=== PATIENT | male | born 1990 | race Caucasian/White ===

== ENCOUNTER 2020-09-29 07:05 | Emergency (ER) | payer MEDICAID, SELFPAY ==
[2020-09-29] VITALS (31 sets, daily range): BP systolic 126–145; BP diastolic 71–94; PULSE 60–88; RESP 12–23; TEMP 36.6–36.7; O2SAT 97–100
--- NOTE | 2020-09-29 07:00 | RT.EKG_ITS ---
APPROVED REPORT Exam: Resting ECG Reason for Exam: possible stroke Patient Location: E HR:67 bpm ECG Measurements Heart Rate 67 AXIS WY 155 P 30 QRSd 82 QRS 60 QT 379 T 32 QTc 400 Conclusion Sinus rhythm...normal P axis, V-rate 60- 99 Physician: no significant st elevation or depression. No stemi
--- NOTE | 2020-09-29 07:27 | ED.GENADUL_ITS ---
Discharge Plan Disposition Patient Disposition: [facility] Condition: Critical Discharge Details Clinical Impression: Paralysis of right upper extremity, Paralysis of right lower extremity Primary Care Provider: None,None ED Provider: Esdras Burton Home Meds and New Rx's Prescriptions: No Action No Known Home Meds RF: 0 Discharge Data Discharge Date/Time-TO BE ENTERED AT DEPARTURE: 09/29/20 10:28 Medical Decision Making <Stew Retana DO - Last Filed: 09/30/20 01:29> 30-year-old male who denies any past medical history presents today for evaluation of stroke. Per EMS and the patient at 1900 last night the patient developed symptoms of notable right-sided weakness. He felt that it came on suddenly. He denies any numbness or tingling. He denies any headache, vision changes, chest pain, shortness of breath, chest heaviness, or ripping or tearing sensation in the chest. He denies any history of IV or illicit drug use, head trauma, nausea, vomiting or diarrhea. He denies any other complaints at this time. He never had an episode like this before. He denies any recent diarrhea, can food intake, IV or illicit drug use, family history of atypical neurologic disease. Physical exam demonstrates total paralysis of the right upper and right lower extremity, his tongue deviates to the right, however no significant facial asymmetry. Vision is intact. Interestingly the patient has total normal sensation for all extremities throughout. Good vascular exam, good pulses. +2 DTR at the patella bilaterally. Differential certainly includes stroke, however transverse myelitis or other acute atypical intracranial pathology is on the differential. He has no back pain, no neck pain or headache. Symptoms clinically inconsistent with dissection. Patient is out of the window for TPA since his last known well was early last evening. We will start with CT/CTA, monitor closely and reassess. Patient will be signed out to my colleague Dr. Esdras Burton for follow-up on labs, imaging, the final disposition. Please refer to his documentation. <Esdras Burton MD - Last Filed: 10/05/20 10:32> 8:00 --care signed out by Dr. Retana with plan to follow-up on CT imaging and labs. Please see Dr. Retana's note regarding initial ED presentation and course. Patient has received crystalloid bolus of 500 mL. 8:56 -- CT CTA of the brain and neck was interpreted by radiology who I spoke with and notes significant occlusive disease: Left-sided proximal internal carotid artery occlusion at the level of the bulb with reconstitution of the intracranial ICA at the transverse petrous portion, likely reflecting retrograde filling with the [place] of Sam collaterallization. Moderate proximal left common carotid artery stenosis just distal to the origin of the arch. High- grade focal right proximal internal carotid artery stenosis of 90%. High-grade proximal right external carotid artery stenosis of approximately 90%. Left- sided M2 MCA occlusion. Left-sided calloso marginal ZURI occlusion. I immediately called [facility] transfer center to request emergent transfer to neurology for consideration for thrombectomy. Awaiting callback from transfer center. CT images have been sent for review. --Patient is agitated, frustrated and quite anxious. He is agreeable to a small dose of anxiolytic. I will give Ativan 0.5 mg IV. 9:29 -- I spoke with Dr. Guanaco Butler - she reviewed the CT/CTA images and does not identify lesion that would be treatable with intravascular thrombectomy. I reviewed radiologist concern of MCA and ZURI occlusion. She is reviewing with internationalist and will call back. 9:40 --I spoke again with Dr. Guanaco Butler, she will accept the patient in transfer, [facility] air unit activated. She does recommend administering aspirin 325 mg. Lab Data Lab results reviewed: Yes I reviewed the patient's lab results. Labs: Laboratory Tests Range/Units 09/29/20 09/29/20 09/29/20 07:00 07:00 07:00 WBC (4.4-10.8) 10^3/uL 14.56 H RBC (4.36-5.78) 10^6/uL 4.92 Hgb (13.5-17.5) g/dL 14.6 Hct (40.0-50.0) % 43.5 MCV (80-95) fL 88.4 MCH (27.0-33.0) pg 29.7 MCHC (32.0-36.0) % 33.6 RDW (11.8-14.1) % 12.6 Plt Count (130-400) 10^3/uL 275 MPV (8.0-11.0) fL 9.9 Immature Gran % 1.0 Neutrophils % 73.6 Lymphocytes % 12.0 Monocytes % 9.7 Eosinophils % 3.2 Basophils % 0.5 Nucleated RBC % % 0 Absolute Neutrophils (1.2-6.7) 10^3/uL 10.72 H Absolute Lymphocytes (1.2-3.4) 10^3/uL 1.75 Absolute Monocytes (0.1-0.8) 10^3/uL 1.41 H Absolute Eosinophils (0.0-0.7) 10^3/uL 0.47 Absolute Basophils (0.0-0.2) 10^3/uL 0.07 PT (9.3-11.0) sec INR (0.9-1.1) APTT (21.0-27.5) sec Sodium (136-145) mmol/L 141 Potassium (3.5-5.1) mmol/L 3.9 Chloride (98-107) mmol/L 105 Carbon Dioxide (21.0-32.0) mmol/L 25.7 Anion Gap (3-11) mmol/L 10.3 BUN (7-18) mg/dL 14 Creatinine (0.70-1.30) mg/dL 1.0 Estimated GFR/1.73 m2 (mL/min/1.73m2) >= 60.00 Glucose (74-106) mg/dL 109 H Calcium (8.5-10.1) mg/dL 8.9 Total Bilirubin (0.2-1.0) mg/dL 0.5 AST (15-37) U/L 28 ALT (16-63) U/L 29 Alkaline Phosphatase (46-116) U/L 88 Troponin I (<0.06) ng/mL < 0.05 Total Protein (6.4-8.2) g/dL 7.7 Albumin (3.4-5.0) g/dL 4.0 TSH (0.36-3.74) uIU/mL 25.61 H Free T4 (0.76-1.46) ng/dL 0.90 Salicylates (<2.8) mg/dL 5.0 Acetaminophen (10-30) ug/mL < 2 Ethyl Alcohol (<3) mg/dL < 3.0 Range/Units 09/29/20 07:00 WBC (4.4-10.8) 10^3/uL RBC (4.36-5.78) 10^6/uL Hgb (13.5-17.5) g/dL Hct (40.0-50.0) % MCV (80-95) fL MCH (27.0-33.0) pg MCHC (32.0-36.0) % RDW (11.8-14.1) % Plt Count (130-400) 10^3/uL MPV (8.0-11.0) fL Immature Gran % Neutrophils % Lymphocytes % Monocytes % Eosinophils % Basophils % Nucleated RBC % % Absolute Neutrophils (1.2-6.7) 10^3/uL Absolute Lymphocytes (1.2-3.4) 10^3/uL Absolute Monocytes (0.1-0.8) 10^3/uL Absolute Eosinophils (0.0-0.7) 10^3/uL Absolute Basophils (0.0-0.2) 10^3/uL PT (9.3-11.0) sec 9.4 INR (0.9-1.1) 0.9 APTT (21.0-27.5) sec 21.8 Sodium (136-145) mmol/L Potassium (3.5-5.1) mmol/L Chloride (98-107) mmol/L Carbon Dioxide (21.0-32.0) mmol/L Anion Gap (3-11) mmol/L BUN (7-18) mg/dL Creatinine (0.70-1.30) mg/dL Estimated GFR/1.73 m2 (mL/min/1.73m2) Glucose (74-106) mg/dL Calcium (8.5-10.1) mg/dL Total Bilirubin (0.2-1.0) mg/dL AST (15-37) U/L ALT (16-63) U/L Alkaline Phosphatase (46-116) U/L Troponin I (<0.06) ng/mL Total Protein (6.4-8.2) g/dL Albumin (3.4-5.0) g/dL TSH (0.36-3.74) uIU/mL Free T4 (0.76-1.46) ng/dL Salicylates (<2.8) mg/dL Acetaminophen (10-30) ug/mL Ethyl Alcohol (<3) mg/dL HPI <Stew R [place], DO - Last Filed: 09/30/20 01:29> General Date/Time Provider Initiated Documentation: 09/29/20 07:27 . HPI Narrative: 30-year-old male who denies any past medical history presents today for evaluation of stroke. Per EMS and the patient at 1900 the patient developed symptoms of notable right-sided weakness. He felt that it came on suddenly. He denies any numbness or tingling. He denies any headache, vision changes, chest pain, shortness of breath, chest heaviness, or ripping or tearing sensation in the chest. He denies any history of IV or illicit drug use, head trauma, nausea, vomiting or diarrhea. He denies any other complaints at this time. He never had an episode like this before. He denies any recent diarrhea, can food intake, IV or illicit drug use, family history of atypical neurologic disease. Related Data Home Medications Medication Instructions Recorded Confirmed Unknown [No Known Home Meds] 09/29/20 09/29/20 Allergies Allergy/AdvReac Type Severity Reaction Status Date / Time No Known Allergies Allergy Unverified 09/29/20 07:11 General Stated Complaint: CVA/TIA JENNY: 2 Review of Systems <Stew Retana DO - Last Filed: 09/30/20 01:29> All systems reviewed & are unremarkable except as noted in HPI and below PFSH <Stew Retana DO - Last Filed: 09/30/20 01:29> Social History Smoking/Tobacco Use Status: Current every day Smoking risk assessment performed?: Yes Alcohol Intake: current Drug use: Occasionally Substance use type: marijuana Do you feel safe at home: Yes Exam <Stew Retana DO - Last Filed: 09/30/20 01:29> Narrative Exam Narrative: 1.Const: Well-nourished, Well-developed, appearing stated age 2.Eyes: PERRL, no conjunctival injection, and symmetrical lids. 3.ENT: Atraumatic external nose and ears. Moist MM. Neck: Symmetric, trachea midline, No thyromegaly. No facial asymmetry. Tongue deviates to the right. No nuchal rigidity. No neck tenderness. 4.CVS: +S1/S2, No murmurs or gallops. Peripheral pulses 2+ and equal in all extremities. Brisk capillary refill in all extremities. 5.RESP: Unlabored respiratory effort. Clear to auscultation bilaterally. No wheezes rales or rhonchi 6.GI: Soft, Nontender/Nondistended, No hepatosplenomegaly. No guarding or rebound. 7.MSK: Normocephalic/Atraumatic, Extremities w/o deformity or ttp. 5 out of 5 strength of the left upper and left lower extremity. Patient has 0 strength of the right upper extremity and right lower extremity. Total paralysis of these 2 limbs. 8.Skin: Warm, Dry. No rashes or lesions. 9.Neuro: head piece assembler II-XII grossly intact aside for the deviation of the tongue to the right. Sensation grossly intact, with no diminished sensation for the right lateral and medial thigh, lateral and medial calf, or foot. No decreased sensation for any aspect of the right upper extremity. Also demonstrates normal sensation for the left upper and left lower extremity. 10.Psych: (AAO) x3. Appropriate mood and affect Course <Stew Retana, DO - Last Filed: 09/30/20 01:29> Vital Signs Vital signs: Vital Signs Temperature 36.6 C 09/29/20 07:07 Pulse 69 09/29/20 07:07 Blood Pressure 145/94 H 09/29/20 07:07 Pulse Oximetry 97 09/29/20 07:07 Temperature 36.6 C 09/29/20 07:07 Temperature Source Temporal Artery Scan 09/29/20 07:07 Pulse 69 09/29/20 07:07 Blood Pressure 145/94 H 09/29/20 07:07 Blood Pressure Position Supine 09/29/20 07:07 Pulse Oximetry 97 09/29/20 07:07 Oxygen Delivery Method Room Air 09/29/20 07:07 Oxygen Flow Rate 0 09/29/20 07:07 Pain Level 0 09/29/20 07:07 Critical Care Time <Stew Retana DO - Last Filed: 09/30/20 01:29> Critical Care Time Critical Care Time: Yes Total Critical Care Time: 30 Attestation: Upon my evaluation, this patient had a high probability of imminent or life-threatening deterioration, which required my direct attention, intervention, and personal management. I have personally provided 30 minutes of critical care time exclusive of time spent on separately billable procedures. Time includes review of laboratory data, radiology results, discussion with consultants, and monitoring for potential decompensation. Interventions were performed as documented. <Esdras Burton MD - Last Filed: 10/05/20 10:32> Critical Care Time Critical Care Time: Yes Total Critical Care Time: 45 Attestation: I spent greater than 45 minutes addressing this patient's immediate life threats. Please see MDM section of note. This time was spent engaged in work directly related to the patient's care, exclusive of separate procedures, and failure to initiate these interventions would have likely resulted in clinically significant or life threatening deterioration in the patient's condition. Sign Out <Stew Retana DO - Last Filed: 09/30/20 01:29> Sign Out Data: Sign Out Comment: Pending CT results for right-sided paralysis. Concern for stroke. Last updated by Stew Retana DO at 09/29/20 08:08
[2020-09-29] MEDS: Omnipaque 350 MG/ML 100 ML BTL IJ (07:28)
[2020-09-29] MEDS: Normal Saline Flush 10 ML SYR IVP (07:30)
[2020-09-29] MEDS: Normal Saline - Diluent 50 ML VIAL IV (07:30)
[2020-09-29 07:32] LABS: Abs Immature Grans 0.14 10^3/uL (0.0-0.06); Absolute Monocyte Count 1.41 10^3/uL (0.1-0.8); Basophils % 0.5; Eosinophils % 3.2; HCT 43.5 % (40.0-50.0); HGB 14.6 g/dL (13.5-17.5); MCH 29.7 pg (27.0-33.0); MCHC 33.6 % (32.0-36.0); MCV 88.4 fL (80-95); MPV 9.9 fL (8.0-11.0); Monocytes % 9.7; Neutrophils % 73.6; Nucleated RBC 0 %; Platelet Count 275 10^3/uL (130-400); RBC 4.92 10^6/uL (4.36-5.78); RDW 12.6 % (11.8-14.1); RDW-SD 40.9 fL; WBC 14.56 10^3/uL (4.4-10.8)
[2020-09-29 07:33] LABS: Absolute Basophil Count 0.07 10^3/uL (0.0-0.2); Absolute Eosinophil Count 0.47 10^3/uL (0.0-0.7); Absolute Lymphocyte Count 1.75 10^3/uL (1.2-3.4); Absolute Neutrophil Count 10.72 10^3/uL (1.2-6.7)
--- NOTE | 2020-09-29 07:35 | DI.CT_ITS ---
Exam(s) CT BRAIN NECK CTA EXAM: CT BRAIN NECK CTA CLINICAL HISTORY: right sided paralysis. TECHNIQUE: Imaging Protocol: Axial CT angiography was performed with multi-slice acquisition and mu lti-planar and/or 3D reconstructions. CONTRAST MATERIAL: Intravenous: Omnipaque 350 Contrast volume:85 cc COMPARISON: No exams were available for comparison FINDINGS: CTA Neck W: Aortic arch anatomy: The aortic arch anatomy is conventional. Anterior circulation: There is moderate stenosis of the origin of the left common carotid artery at the arch level. No ajmes dence of significant stenosis at the origin of the opposite-right common carotid artery nor stenosis in the left subclavian artery proximal to the vertebral artery takeoff point Above the level of the arch both common carotid arteries ascend with normal luminal diameters. Howev er, the left internal carotid artery is occluded just distal to its origin and are of some flow is no mario to be reconstituted in the left ICA in the skull base-carotid canal. On the opposite-right side there is significant focal stenosis at the origin of the right ICA with ap proximately 80-90 percent stenosis at this level. Above this level the right ICA exhibits normal [place] meter in the upper neck as well as within the skull base-carotid canal. Posterior circulation: Both vertebral arteries originated conventional fashion off of the subclavian arteries and there is n o significant stenosis in the subclavian arteries proximal to the vertebral artery takeoff points nor significant stenosis at the origin of the vertebral arteries off of the subclavian arteries. Both v ertebral arteries ascend in the foramen transversarium with normal and approximately equal luminal di ameters and both of these vessels contribute to the formation of the basilar artery at the skull base . CTA Brain W: Anterior circulation: The occluded left internal carotid artery (which is occluded at its origin) appears to exhibits some intraluminal flow within the skull base-carotid canal. Also for exhibits flow with in the left intra cavernous internal carotid artery (the opposite-right ICA is PICC is patent at these levels. Supracl inoid aspects of both internal carotid arteries are patent. No aneurysms. Right middle cerebral artery appears patent. The left middle cerebral artery is occluded approximate ly 11 millimeters lateral to its origin at M2 segment. Both A1 segments are patent.. No evidence of aneurysm at the level of the anterior communicating art sharon. There is decreased flow in the left anterior cerebral artery in the callosum marginal region. Posterior circulation: Basilar artery is formed by contribution from both vertebral arteries and ascends in the midline with patent lumen and no evidence of intraluminal thrombus nor dissection. Distally it gives off patent bilateral posterior cerebral arteries and above this level terminates as patent posterior cerebral ar teries. There is no evidence of aneurysm of the tip of the basilar artery nor elsewhere in the wyvikt-ev-Gerl is. CT BRAIN: There is no evidence of intracranial hemorrhage, mass effect, or shift of midline structures. There are no extra-axial fluid collections. Ventricles are not enlarged or shifted and there is no blood w ithin the ventricular system nor within the basal cisterns. There are no ring enhancing lesions in t he brain and no abnormal meningeal enhancement. No obvious infarction on CT scan evident IMPRESSION: 1. The left internal carotid artery is occluded just distal to its origin. It is reconstituted in th e skull base-carotid canal petrous portion. There is also moderate stenosis of the left common carot id artery at its origin off of the aortic arch. 2. There is a high-grade 90 percent stenosis in the proximal right internal carotid artery (as well as is similar stenosis at the proximal right external carotid artery). 3. There is occlusion of the left middle cerebral artery M2 segment. 4. Decreased flow-probable occlusion left calloso- marginal anterior cerebral artery level 5. No obvious infarct in the brain seen on CT scan and no abnormal enhancement, ring-enhancing lesio ns, nor abnormal meningeal enhancement. Recommend follow-up MRI with diffusion imaging/MRA. This study 1st read by [facility]. They contacted the ER physician. I also spoke with the ER physician to confirm results. RADIATION DOSE DELIVERED: 1,796.2mGy.cm Total DLP DATA REPOSITORY: All CT scans at this facility are submitted to the National Radiology Data Registry (NRDR) Dose Index Registry (DIR) with the [employer] (ACR). RADIATION OPTIMIZATION: All CT scans at this facility use at least one of these dose optimization te chniques: automated exposure control; mA and/or kV adjustment per patient size (includes targeted exa ms where dose is matched to clinical indication); or iterative reconstruction.
[2020-09-29 07:43] LABS: INR 0.9 (0.9-1.1); PTT Activated 21.8 sec (21.0-27.5); Prothrombin Time 9.4 sec (9.3-11.0)
[2020-09-29 07:50] LABS: ALT 29 U/L (16-63); AST 28 U/L (15-37); Alkaline Phosphatase 88 U/L (46-116); Anion Gap 10.3 mmol/L (3-11); BUN 14 mg/dL (7-18); Bilirubin, Total 0.5 mg/dL (0.2-1.0); CO2 25.7 mmol/L (21.0-32.0); Calcium 8.9 mg/dL (8.5-10.1); Chloride 105 mmol/L (98-107); Glucose 109 mg/dL (74-106); Potassium 3.9 mmol/L (3.5-5.1); Sodium 141 mmol/L (136-145); TSH (W/Ref FT4) 25.61 uIU/mL (0.36-3.74); Total Protein 7.7 g/dL (6.4-8.2)
[2020-09-29] MEDS: Normal Saline 500 ML IV (07:52)
[2020-09-29 08:08] LABS: Troponin I < 0.05 ng/mL (<0.06)
[2020-09-29 08:15] LABS: Acetaminophen < 2 ug/mL (10-30)
[2020-09-29 08:46] LABS: ETHANOL BLOOD < 3.0 mg/dL (<3)
--- NOTE | 2020-09-29 08:51 | DI.VRAD_ITS ---
Addendum created by Herson Hoskins MD on 09/29/2020 8:51:30 AM EDT: THIS REPORT CONTAINS FINDINGS THAT MAY BE CRITICAL TO PATIENT CARE. The findings were verbally communicated via telephone conference with Josephine at 8:51 AM EDT on 09/29/2020. The findings were acknowledged and understood. Initial report created on 09/29/2020 8:50:57 AM EDT: PROCEDURE INFORMATION: Exam: CT Angiography Head With Contrast, Arteriography Exam date and time: 09/29/2020 7:08 AM Age: 30 years old Clinical indication: Other: Right sided paralysis TECHNIQUE: Imaging protocol: Computed tomography angiography of the head with contrast. Exam focused on the arteries. 3D rendering (Not supervised by radiologist): MIP and/or 3D reconstructed images were created by the technologist. Radiation optimization: All CT scans at this facility use at least one of these dose optimization techniques: automated exposure control; mA and/or kV adjustment per patient size (includes targeted exams where dose is matched to clinical indication); or iterative reconstruction. Contrast material: OMNIPAQUE 350; Contrast volume: 85 ml; Contrast route: INTRAVENOUS (IV); COMPARISON: CT FACIAL WITH CONTRAST 03/27/2016 9:17 PM FINDINGS: ANTERIOR CIRCULATION: Right internal carotid artery: Unremarkable. Intracranial segment is patent with no significant stenosis. No aneurysm. Right middle cerebral artery: Left-sided M2 MCA occlusion. Right anterior cerebral artery: Left-sided calloso marginal ZURI occlusion. Left internal carotid artery: Unremarkable. Intracranial segment is patent with no significant stenosis. No aneurysm. Left middle cerebral artery: Unremarkable. No occlusion or significant stenosis. No aneurysm. Left anterior cerebral artery: Unremarkable. No occlusion or significant stenosis. No aneurysm. POSTERIOR CIRCULATION: Right vertebral artery: Unremarkable. No occlusion or significant stenosis. No aneurysm. Left vertebral artery: Unremarkable. No occlusion or significant stenosis. No aneurysm. Basilar artery: Unremarkable. No occlusion or significant stenosis. No aneurysm. Right posterior cerebral artery: Unremarkable. No occlusion or significant stenosis. No aneurysm. Left posterior cerebral artery: Unremarkable. No occlusion or significant stenosis. No aneurysm. Brain: No definite mass, mass effect, or midline shift. Cerebral ventricles: No ventriculomegaly. Bones/joints: Unremarkable. No acute fracture. Soft tissues: Unremarkable. IMPRESSION: 1. Left-sided M2 MCA occlusion. 2. Left-sided calloso marginal ZURI occlusion. PROCEDURE INFORMATION: Exam: CT Angiography Neck With Contrast Exam date and time: 09/29/2020 7:08 AM Age: 30 years old Clinical indication: Other: Right sided paralysis TECHNIQUE: Imaging protocol: Computed tomography angiography of the neck with contrast. 3D rendering (Not supervised by radiologist): MIP and/or 3D reconstructed images were created by the technologist. Radiation optimization: All CT scans at this facility use at least one of these dose optimization techniques: automated exposure control; mA and/or kV adjustment per patient size (includes targeted exams where dose is matched to clinical indication); or iterative reconstruction. Contrast material: OMNIPAQUE 350; Contrast route: INTRAVENOUS (IV); COMPARISON: CT FACIAL WITH CONTRAST 03/27/2016 9:17 PM FINDINGS: Right common carotid artery: Moderate proximal stenosis just distal to the origin of the arch. No dissection or occlusion. Right internal carotid artery: High-grade focal right proximal internal carotid artery stenosis of 90%. Right external carotid artery: High-grade proximal right external carotid artery stenosis of approximately 90%. Right vertebral artery: No stenosis. No dissection or occlusion. Left common carotid artery: No stenosis. No dissection or occlusion. Left internal carotid artery: Left-sided proximal internal carotid artery occlusion at the level of the bulb with reconstitution of the intracranial ICA at the transverse petrous portion, likely reflecting retrograde filling with mcrcuz-mu-Yibuch collateralization. Left external carotid artery: No occlusion or stenosis of the origin. Left vertebral artery: No stenosis. No dissection or occlusion. Bones/joints: No acute fracture. Soft tissues: Normal. No significant soft tissue swelling. IMPRESSION: 1. Left-sided proximal internal carotid artery occlusion at the level of the bulb with reconstitution of the intracranial ICA at the transverse petrous portion, likely reflecting retrograde filling with limiuk-[id number]-Nsubhf collateralization. 1a. Moderate proximal left common carotid artery stenosis just distal to the origin off the arch 2. High-grade focal right proximal internal carotid artery stenosis of 90%. 3. High-grade proximal right external carotid artery stenosis of approximately 90%. REFERENCES: NASCET CRITERIA. The degree of internal carotid artery stenosis is based on NASCET criteria. Normal is no stenosis. Mild is less than 50% stenosis. Moderate is 50-69% stenosis. Severe is 70% to 99% stenosis. Total occlusion is no detectable patent lumen. Dictated and Authenticated by: Herson Hoskins MD. Ordering:DORA Mathias MD
[2020-09-29] MEDS: LORazepam 2 MG/ML VIAL 0.5 MG IVP (09:11)
[2020-09-29] MEDS: Aspirin 325 MG TAB PO (09:44)
[2020-09-29 10:08] LABS: Bilirubin Negative (Negative); Blood Negative (Negative); Clarity Clear (Clear); Glucose Negative (Negative); Ketones Negative (Negative); Leukocyte Esterase Negative (Negative); Nitrite Negative (Negative); Specific Gravity 1.015 (1.005-1.025); Urobilinogen 0.2 EU/dL (Up TO 0.2); pH 6.5 (5-8)
[2020-09-29 10:18] LABS: *AMPHETAMINES SCREEN URINE Negative (Negative); *BARBITURATES SCREEN URINE Negative (Negative); *BENZODIAZEPINES SCREEN URINE Negative (Negative); Cannabinoids THC Positive (Negative); Cocaine Screen,Urine Negative (Negative); METHADONE URINE SCREEN Negative (Negative); OPIATES URINE SCREEN Negative (Negative)
[2020-09-29 10:22] LABS: Tricyclic Antidepressants Negative (Negative)
--- NOTE | 2020-09-29 10:44 | NUR.NOTE ---
Nursing Note: Report given to [facility] ED nurse Adela by this nurse. Adela verbalized that patients mother could come to [facility] without being COVID vaccinated. This nurse attemped to call patients mother 3 times to relay this message without success.
== END 2020-09-29 10:28 | disposition short-term general hospital (02) ==
PROVIDERS: Student in an Organized Health Care Education/Training Program; Emergency Provider Student in an Organized Health Care Education/Training Program
DX: G83.11 Monoplegia of lower limb affecting right dominant side (principal); G83.21 Monoplegia of upper limb affecting right dominant side; R45.1 Restlessness and agitation; R93.0 Abnormal findings on diagnostic imaging of skull and head, not elsewhere classified; F17.210 Nicotine dependence, cigarettes, uncomplicated
CPT/HCPCS: 36415; 36416; 70496; 70498; 80053; 80307; 82962; 93005; 96361; 96374; 99291; 99292; 80320; 80329; 81003; 84439; 84443; 84484; 85025; 85610; 85730; 93010; J2060; J3490

== ENCOUNTER 2021-02-15 09:18 | Outpatient (REF) | payer BC, SELFPAY ==
[2021-02-15 15:00] LABS: HCT 45.6 % (40.0-50.0); HGB 15.1 g/dL (13.5-17.5); MCH 28.5 pg (27.0-33.0); MCHC 33.1 % (32.0-36.0); MPV 10.3 fL (8.0-11.0); Platelet Count 338 10^3/uL (130-400); RDW 12.3 % (11.8-14.1); RDW-SD 38.9 fL; WBC 10.57 10^3/uL (4.4-10.8)
[2021-02-15 15:37] LABS: Calculated LDL 96 mg/dL (<100); Cholesterol 170 mg/dL (<200); HDL Cholesterol 53 mg/dL (40-60); Triglyceride 108 mg/dL (<150)
== END 2021-02-15 09:19 | disposition home or self-care (01) ==
LOC: NCHCN 09:18
PROVIDERS: Visit Provider Physician Assistant
DX: I63.9 Cerebral infarction, unspecified (principal)
CPT/HCPCS: 80061; 85027

== ENCOUNTER 2023-03-12 21:41 | Emergency (ER) | payer SELFPAY ==
[2023-03-12 21:39] VITALS: BP 120/80; PULSE 67; RESP 20; TEMP 36.8; O2SAT 99
[2023-03-12] MEDS: Normal Saline 1,000 ML 1000 ML IV (21:50)
--- NOTE | 2023-03-12 21:52 | ED.GENADUL_ITS ---
Discharge Plan Disposition Patient Disposition: Home Condition: Stable Discharge Details Clinical Impression: Alcohol intoxication Primary Care Provider: Unknown,Unknown ED Provider: Esthela Ball Home Meds and New Rx's Prescriptions: Continued atorvastatin 80 mg tablet 80 mg PO DAILY Patient Comments: TAKE ONE TABLET BY MOUTH EVERY EVENING carvedilol 12.5 mg tablet 12.5 mg PO BID Patient Comments: TAKE ONE TABLET BY MOUTH TWICE A DAY Discharge Instructions Instructions: Alcohol Intoxication (ED) Referrals: Practice Provider [Provider Group] (follow up with your primary care provider if needed. ) Discharge Data Discharge Date/Time-TO BE ENTERED AT DEPARTURE: 03/13/23 06:18 Medical Decision Making This is a 32-year-old male patient history of CVA presents by EMS intoxicated reportedly found on the kitchen floor vomiting. On arrival he is awake alert oriented and coherent able to provide accurate history. Unfortunately I am unable to verify the circumstances regarding him being on his kitchen floor and as he is still intoxicated do not feel comfortable ruling out closed head injury or cervical spine injury. Did discuss CT imaging with him and due to cost he is adamantly refusing. We will give 1 L of normal saline and offered Zofran 4 mg IV which he has declined. No labs ordered at this time. I discussed the case with Dr. Blandon who went to evaluate patient please see his note. Medical Records Medical records reviewed: Yes I reviewed the patient's medical records. HPI General Mode of arrival: EMS . Date/Time Provider Initiated Documentation: 03/12/23 21:48 . Limitations to Documentation: no limitations . Information obtained by: patient and EMS . HPI Narrative: This is a 32-year-old male patient with a history of CVA who states that he got intoxicated today after finding news that his uncle suddenly last night. He states that he can drink heavily but typically does not during the week. He states that he drank a 12 pack of Budweiser and half a bottle of Marty and ended up on the kitchen floor vomiting. He denies any fall or injury. He states he has no complaints at all at this time. He is awake alert oriented and providing consistent history that was provided by EMS. He states that he came in by EMS only because he was told if he did not that the police would be called to the scene. Related Data Home Medications Medication Instructions Recorded Confirmed atorvastatin 80 mg tablet 80 mg PO DAILY 03/12/23 03/12/23 carvedilol 12.5 mg tablet 12.5 mg PO BID 03/12/23 03/12/23 Allergies Allergy/AdvReac Type Severity Reaction Status Date / Time onions AdvReac Intermediate Uncoded 03/12/23 21:52 peppers AdvReac Intermediate Uncoded 03/12/23 21:52 General Stated Complaint: ETOHWithdr JENNY: 3 Review of Systems All systems reviewed & are unremarkable except as noted in HPI and below PFSH All Active Problems (Updated 03/12/23 @ 22:28 by Esthela Ball NP) Alcohol intoxication (Acute) 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) Social History Smoking/Tobacco Use Status: Current every day Smoking risk assessment performed?: Yes Alcohol Intake: current Drug use: Never Substance use type: marijuana Do you feel safe at home: Yes Exam Const General: intoxicated appearing (Slurring and unsteady but providing accurate history) Nutritional Appearance: average body habitus Orientation: alert, awake and oriented x3 Other: Patient verbalizing concerns regarding cost of imaging [facility] Head: normal to inspection, normocephalic and atraumatic Mouth: oral mucosae normal Neck Neck: normal visual inspection, full ROM and nontender Resp Effort & Inspection: normal respiratory effort Auscultation: clear to auscultation bilaterally Cardio Rate: regular rate Rhythm: regular rhythm Course Vital Signs Vital signs: Vital Signs Temperature 36.8 C 03/12/23 21:39 Pulse 67 03/12/23 21:39 Respiratory Rate 20 03/12/23 21:39 Blood Pressure 120/80 03/12/23 21:39 Pulse Oximetry 99 03/12/23 21:39 Temperature 36.8 C 03/12/23 21:39 Pulse 67 03/12/23 21:39 Respiratory Rate 20 03/12/23 21:39 Respiratory Effort Normal 03/12/23 21:49 Respiratory Pattern Normal 03/12/23 21:47 Blood Pressure 120/80 03/12/23 21:39 Pulse Oximetry 99 03/12/23 21:39 Oxygen Delivery Method Room Air 03/12/23 21:39 Oxygen Flow Rate 0 03/12/23 21:39 PAWSS Have you Been Recently Intoxicated or Drunk Within the Last 30 days?: Yes Have you Ever Experienced Previous Episodes of Alcohol Withdrawal?: Yes Have you ever Experienced Withdrawal Seizures?: No Have you ever Experienced Delirium Tremens(DT)s?: No Have you ever undergone Alcohol Rehabilitation Treatment (i.e, inpt ot outpatient treatment programs)?: No Have you ever Experienced Blackouts?: No Have you ever Combined Alcohol with other Downers within the last 90 days?: No Have you ever Combined Alcohol with any other Substance of Abuse during the last 90 days?: No Positive Blood Alcohol level on Presentation? [PCS.BAL]: No Evidence of Increased Autonomic Activity (i.e. HR>120, tremor, sweating, agitation, nausea)?: No Result: 2
--- NOTE | 2023-03-12 22:12 | W.EDPROG ---
Date of service: 03/12/23 Time of Service: 22:12 Medical Decision Making Patient resting comfortably no acute distress. Patient is alert and oriented he is goal-directed. Patient adamant that he does not want to be in the hospital and expressed such desires to EMS at scene. Patient endorses multiple traumas related to being at this hospital and would like to go home. Patient currently calling his for a ride. Moving all extremities without deficit. No speech deficits. No external signs of cranial cervical or thoracoabdominal trauma. Patient is hemodynamically stable maintaining airway. Patient also endorses that he did not fall to the ground he placed himself on the ground as he was drinking. I do not feel that chemically restrain or physical restraining patient for further work-up is necessary at this time as patient is alert oriented neurologically intact goal-oriented with the intent of going home nonfocal and hemodynamically stable. Patient. Patient to wait here for observation while his fluids are running in and he is waiting for his ride. Discharge Plan Discharge Details Chief Complaint: GenMedical ED Provider: Esthela Ball Home Meds and New Rx's Prescriptions: No Action atorvastatin 80 mg tablet 80 mg PO DAILY Patient Comments: TAKE ONE TABLET BY MOUTH EVERY EVENING carvedilol 12.5 mg tablet 12.5 mg PO BID Patient Comments: TAKE ONE TABLET BY MOUTH TWICE A DAY
--- NOTE | 2023-03-12 22:47 | NUR.NOTE ---
Pt has refused most treatment including head CT and Antiemetic, he allowed fluids and IV, but is currently asking for it to be removed, KOLE
[2023-03-12 22:49] VITALS: RESP 16
[2023-03-12 22:51] VITALS: BP 116/74; PULSE 68; RESP 16; TEMP 36.7; O2SAT 98
[2023-03-13 06:16] VITALS: BP 137/76; PULSE 87; RESP 14; O2SAT 98
== END 2023-03-13 06:18 | disposition home or self-care (01) ==
LOC: ER 22:41
PROVIDERS: Emergency Provider Nurse Practitioner Acute Care
DX: F10.120 Alcohol abuse with intoxication, uncomplicated (principal); F17.210 Nicotine dependence, cigarettes, uncomplicated
CPT/HCPCS: 00123; 36415; 99283; 99282

== ENCOUNTER 2023-08-11 02:19 | Emergency (ER) | payer MEDICAID, SELFPAY ==
[2023-08-11 02:24] VITALS: BP 135/84; PULSE 137; RESP 23; O2SAT 97
--- NOTE | 2023-08-11 02:33 | ED.GENADUL_ITS ---
Discharge Plan Disposition [facility] Dis[facility] Condition: Good Discharge Details Clinical Impression: Alcohol intoxication Primary Care Provider: Unknown,Unknown ED Provider: Rylee Diaz Home Meds and New Rx's Prescriptions: Continued atorvastatin 80 mg tablet 80 mg PO DAILY Patient Comments: TAKE ONE TABLET BY MOUTH EVERY EVENING carvedilol 12.5 mg tablet 12.5 mg PO BID Patient Comments: TAKE ONE TABLET BY MOUTH TWICE A DAY amlodipine 5 mg tablet 5 mg PO DAILY Patient Comments: TAKE ONE TABLET BY MOUTH EVERY DAY clopidogrel 75 mg tablet 75 mg PO DAILY Patient Comments: TAKE ONE TABLET BY MOUTH EVERY DAY oxycodone 5 mg tablet 5 mg PO Q6H PRN Patient Comments: TAKE ONE TABLET BY MOUTH EVERY 6 HOURS NEEDED FOR PAIN Discharge Instructions Instructions: Alcohol Intoxication (ED) Additional Instructions: Call your primary care doctor on Sunday to follow up on your visit today. HPI General Date/Time Provider Initiated Documentation: 08/11/23 02:22 . Limitations to Documentation: no limitations . Information obtained by: patient and police . Related Data Home Medications Medication Instructions Recorded Confirmed atorvastatin 80 mg tablet 80 mg PO DAILY 03/12/23 08/11/23 carvedilol 12.5 mg tablet 12.5 mg PO BID 03/12/23 08/11/23 amlodipine 5 mg tablet 5 mg PO DAILY 08/11/23 08/11/23 clopidogrel 75 mg tablet 75 mg PO DAILY 08/11/23 08/11/23 oxycodone 5 mg tablet 5 mg PO Q6H PRN 08/11/23 08/11/23 Allergies Allergy/AdvReac Type Severity Reaction Status Date / Time onions AdvReac Intermediate Uncoded 03/12/23 21:52 peppers AdvReac Intermediate Uncoded 03/12/23 21:52 General Stated Complaint: ETOHWithdr JENNY: 3 Review of Systems Narrative: see HPI Course Vital Signs Vital signs: Vital Signs Pulse 137 H 08/11/23 02:24 Respiratory Rate 08/11/23 02:24 Blood Pressure 135/84 08/11/23 02:24 Pulse Oximetry 97 08/11/23 02:24 Temperature Source Temporal Artery Scan 08/11/23 02:24 Pulse 137 H 08/11/23 02:24 Respiratory Rate 08/11/23 02:24 Respiratory Effort Normal, Non-Labored 08/11/23 02:29 Blood Pressure 135/84 08/11/23 02:24 Blood Pressure Position Sitting 08/11/23 02:24 Pulse Oximetry 97 08/11/23 02:24 Oxygen Delivery Method Room Air 08/11/23 02:24 Oxygen Flow Rate 0 08/11/23 02:24 Medical Decision Making Quality:SDOH Health Related Social Needs: No Data to Display PFSH All Active Problems (Updated 08/11/23 @ 02:38 by Rylee Diaz MD) Alcohol intoxication (Acute) 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) Social History Smoking/Tobacco Use Status: Current every day Smoking risk assessment performed?: Yes Alcohol Intake: current Alcohol Intake frequency: 3 or more drinks per day Alcohol type: beer Drug use: Daily Substance use type: marijuana Do you feel safe at home: Yes PAWSS Have you Been Recently Intoxicated or Drunk Within the Last 30 days?: Yes Have you Ever Experienced Previous Episodes of Alcohol Withdrawal?: Unable to Obtain Have you ever Experienced Withdrawal Seizures?: Unable to Obtain Have you ever Experienced Delirium Tremens(DT)s?: Unable to Obtain Have you ever undergone Alcohol Rehabilitation Treatment (i.e, inpt ot outpatient treatment programs)?: Unable to Obtain Have you ever Experienced Blackouts?: Unable to Obtain Have you ever Combined Alcohol with other Downers within the last 90 days?: Yes Have you ever Combined Alcohol with any other Substance of Abuse during the last 90 days?: Yes Positive Blood Alcohol level on Presentation? [PCS.BAL]: Yes Evidence of Increased Autonomic Activity (i.e. HR>120, tremor, sweating, agitation, nausea)?: No Result: 4
--- NOTE | 2023-08-11 02:43 | W.ED.GENAD ---
Discharge Plan Disposition [facility] Disposition: [facility] Condition: Good Discharge Details Clinical Impression: Alcohol intoxication Primary Care Provider: Unknown,Unknown ED Provider: Rylee Diaz Home Meds and New Rx's Prescriptions: Continued atorvastatin 80 mg tablet 80 mg PO DAILY Patient Comments: TAKE ONE TABLET BY MOUTH EVERY EVENING carvedilol 12.5 mg tablet 12.5 mg PO BID Patient Comments: TAKE ONE TABLET BY MOUTH TWICE A DAY amlodipine 5 mg tablet 5 mg PO DAILY Patient Comments: TAKE ONE TABLET BY MOUTH EVERY DAY clopidogrel 75 mg tablet 75 mg PO DAILY Patient Comments: TAKE ONE TABLET BY MOUTH EVERY DAY oxycodone 5 mg tablet 5 mg PO Q6H PRN Patient Comments: TAKE ONE TABLET BY MOUTH EVERY 6 HOURS NEEDED FOR PAIN Discharge Instructions Instructions: Alcohol Intoxication (ED) Additional Instructions: Call your primary care doctor on Sunday to follow up on your visit today. HPI General Date/Time Provider Initiated Documentation: 08/11/23 02:22. Limitations to Documentation: no limitations. Information obtained by: patient, police and old records reviewed. HPI Narrative: 33yo M with extensive prior medical history including prior CVA, recent left carotid endardectomy, presenting via PD for medical clearance. Being detained for intoxication. Patient reports pain in his hands from handcuffs and left knee pain (states he did that, he pushed be down gesturing at officer), otherwise denies pain or injury. States he did not strike his head at any point or lose consciousness. Will not engage with direct questions regarding substance use, states just ask him, I guess he knows again gesturing at officer. Aside from knee, patient denies any medical complaints or concerns. Related Data Home Medications Medication Instructions Recorded Confirmed atorvastatin 80 mg tablet 80 mg PO DAILY 03/12/23 08/11/23 carvedilol 12.5 mg tablet 12.5 mg PO BID 03/12/23 08/11/23 amlodipine 5 mg tablet 5 mg PO DAILY 08/11/23 08/11/23 clopidogrel 75 mg tablet 75 mg PO DAILY 08/11/23 08/11/23 oxycodone 5 mg tablet 5 mg PO Q6H PRN 08/11/23 08/11/23 Allergies Allergy/AdvReac Type Severity Reaction Status Date / Time onions AdvReac Intermediate Uncoded 03/12/23 21:52 peppers AdvReac Intermediate Uncoded 03/12/23 21:52 General Stated Complaint: ETOHWithdr JENNY: 3 Review of Systems Narrative: see HPI Exam Narrative Exam Narrative: General: Alert, non-toxic, mildly agitated. Smells of ETOH. Head: Normocephalic, atraumatic. Non-tender. No abrasions, lacerations, or swelling. Neck: Trachea midline, ?Neck supple. Well healed surgical incision left lateral neck. Cardiac: ?Tachycardiac, regular,, no murmurs appreciated Resp: No respiratory distress. CTAB. Abd: ?Soft, non-distended, nontender Extremities: ?No deformities.? No peripheral edema. LLE: ~3cm circular area of echymosis to proximal posterior/lateral calf just distal to knee. ~1cm circular abrasion to anterior knee, slightly superior/lateral. No bony tenderness. No palpable effusion. Able to bear without difficulty. Neurologic: GCS 15. ? Moves all extremities freely against gravity. PERRL. EOMI. No asymmetry, no nasolabial fold flattening. Normal hearing to speech Slightly slurred speech. Ambulates steadily. Motor- Moves all extremities freely against gravity. In handcuffs, able to use arms to push himself up from the bed. Gait/station: ?Normal stance.? No truncal ataxia. Steady gait with equal normal steps Course Vital Signs Vital signs: Vital Signs Pulse 137 H 08/11/23 02:24 Respiratory Rate 23 08/11/23 02:24 Blood Pressure 135/84 08/11/23 02:24 Pulse Oximetry 97 08/11/23 02:24 Temperature Source Temporal Artery Scan 08/11/23 02:24 Pulse 137 H 08/11/23 02:24 Respiratory Rate 23 08/11/23 02:24 Respiratory Effort Normal, Non-Labored 08/11/23 02:29 Blood Pressure 135/84 08/11/23 02:24 Blood Pressure Position Sitting 08/11/23 02:24 Pulse Oximetry 97 08/11/23 02:24 Oxygen Delivery Method Room Air 08/11/23 02:24 Oxygen Flow Rate 0 08/11/23 02:24 Medical Decision Making 33yo M with extensive prior medical history including prior CVA, recent left carotid endardectomy, presenting via PD for medical clearance. Being detained for intoxication. Patient reports pain in his hands from handcuffs and left knee pain (states he did that, he pushed be down gesturing at officer), otherwise denies pain or injury. States he did not strike his head at any point or lose consciousness. Will not engage with direct questions regarding substance use, states just ask him, I guess he knows again gesturing at officer. Aside from knee, patient denies any medical complaints or concerns. [facility] medical records reviewed including ED visits 09/29/20 & 03/12/23. Tachycardiac to 130's, however patient is mildly agitated, pacing, yelling at officer. Refuses EKG or blood draw; does agree to fingerstick blood glucose which was normal. Clinically intoxicated, smells of ETOH. Slightly slurred speech, otherwise no focal neurologic deficits. Non-toxic appearing. No indication of head injury on exam and no history of such from either patient or PD. I have no indication to override his wishes regarding EKG/blood work and his presentation is consistent with ETOH intoxication, low suspicion for metabolic or traumatic causes . Would not pursue imaging. Medically cleared. Discharged to PD custody. 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) Social History Smoking/Tobacco Use Status: Current every day Smoking risk assessment performed?: Yes Alcohol Intake: current Alcohol Intake frequency: 3 or more drinks per day Alcohol type: beer Drug use: Daily Substance use type: marijuana Do you feel safe at home: Yes PAWSS Have you Been Recently Intoxicated or Drunk Within the Last 30 days?: Yes Have you Ever Experienced Previous Episodes of Alcohol Withdrawal?: Unable to Obtain Have you ever Experienced Withdrawal Seizures?: Unable to Obtain Have you ever Experienced Delirium Tremens(DT)s?: Unable to Obtain Have you ever undergone Alcohol Rehabilitation Treatment (i.e, inpt ot outpatient treatment programs)?: Unable to Obtain Have you ever Experienced Blackouts?: Unable to Obtain Have you ever Combined Alcohol with other Downers within the last 90 days?: Yes Have you ever Combined Alcohol with any other Substance of Abuse during the last 90 days?: Yes Positive Blood Alcohol level on Presentation? [PCS.BAL]: Yes Evidence of Increased Autonomic Activity (i.e. HR>120, tremor, sweating, agitation, nausea)?: No Result: 4
== END 2023-08-11 02:54 ==
PROVIDERS: Emergency Provider Student in an Organized Health Care Education/Training Program
DX: F10.929 Alcohol use, unspecified with intoxication, unspecified (principal); M25.562 Pain in left knee; R00.2 Palpitations; Z86.73 Personal history of transient ischemic attack (TIA), and cerebral infarction without residual deficits
CPT/HCPCS: 36416; 82962; 99285; 99283